=== PATIENT | female | born 1970 | race American Indian/Alaskan Native ===

== ENCOUNTER 2016-08-21 00:28 | Emergency (ER) | payer MEDICAID ==
[2016-08-21 00:51] VITALS: BP 134/84
[2016-08-21] MEDS ORDERED: DELTASONE PO ONE (03:06)
[2016-08-21] MEDS ORDERED: BENADRYL PO ONE (03:06)
--- NOTE | 2016-08-21 03:07 | Emergency Department Report ---
HPI - General Chief Complaint: Skin Rash Time Seen by Provider: 08/21/16 02:43 - HPI HPI: Patient is a 46-year-old female presents to ED complaining of itching on her right lower arm 4 days. Patient states 4 days ago she noticed a bump on posterior lower arm starting on her wrist in more showed up on her wrists. Patient states rash is itchy in nature. Patient states she has not, to contact with any allergens that she is aware of She denies fevers/chills/nausea/vomiting/assessment chest pain/shortness of breath or any other problems ED Past Medical Hx - Past Medical History Previous Medical History?: Yes Hx Hypertension: Yes Hx Arthritis: Yes (RH) Hx Psychiatric Treatment: Yes (biplor,maniac depression,schizophrenia) Additional medical history: chronic pain,DJD - Surgical History Past Surgical History?: Yes Additional Surgical History: abnormal pap smear resulting in cyrosurgery - Social History Smoking Status: Current Every Day Smoker Substance Use Type: None - Medications Home Medications: Home Medications Medication Instructions Recorded Confirmed Last Taken Type Ambien 10 mg PO HS 02/21/16 08/21/16 2 Days Ago History Atenolol 50 mg PO DAILY #30 02/21/16 08/21/16 1 Day Ago Rx Ativan 1 mg PO PRN 02/21/16 08/21/16 1 Day Ago History Benadryl CAP 50 mg PO BID 02/21/16 08/21/16 1 Day Ago History Elavil 50 mg PO DAILY 02/21/16 08/21/16 1 Day Ago History PROzac 60 mg PO DAILY 02/21/16 08/21/16 1 Day Ago History Percocet 10/325 mg 10 mg PO TID 02/21/16 08/21/16 08/20/16 History Simvastatin 20 mg PO HS #30 02/21/16 08/21/16 1 Day Ago Rx amLODIPine 5 mg PO DAILY #30 02/21/16 08/21/16 1 Day Ago Rx traMADol 50 mg PO PRN 02/21/16 08/21/16 Unknown History ALBUTEROL Inhaler [Proair] 1 puff IH DAILY 08/21/16 08/21/16 Unknown History Fluticasone/Salmeterol [Advair 1 spray IH DAILY 08/21/16 08/21/16 1 Day Ago History 250-50 Diskus] Furosemide [Lasix] 20 mg PO QDAY 08/21/16 08/21/16 1 Day Ago History Prednisone [predniSONE 5 mg (6-Day 5 mg PO .TAPER #1 tab.ds.pk 08/21/16 Unknown Rx Pack, 21 Tabs)] diphenhydrAMINE [Benadryl CAP] 25 mg PO QHS #24 capsule 08/21/16 Unknown Rx ED Review of Systems ROS: Stated complaint: RASH W/ITCHING Other details as noted in HPI Constitutional: denies: chills, fever Eyes: denies: eye pain, eye discharge, vision change ENT: denies: ear pain, throat pain Respiratory: denies: cough, shortness of breath, wheezing Cardiovascular: denies: chest pain, palpitations Endocrine: no symptoms reported Gastrointestinal: denies: abdominal pain, nausea, diarrhea Genitourinary: denies: urgency, dysuria, discharge Musculoskeletal: denies: back pain, joint swelling, arthralgia Skin: pruritus. denies: rash, lesions Neurological: denies: headache, weakness, paresthesias Psychiatric: denies: anxiety, depression Hematological/Lymphatic: denies: easy bleeding, easy bruising Physical Exam - Physical Exam Vital Signs: Vital Signs 08/21/16 08/21/16 00:47 01:02 Temperature 98.4 F Pulse Rate 83 Respiratory 18 18 Rate Blood Pressure 134/84 O2 Sat by Pulse 97 97 Oximetry Physical Exam: GENERAL: Alert and oriented x3, no apparent distress, Normal Gait, atraumatic. HEAD: Head is normocephalic and a-traumatic. EYES: Extra ocular muscles are intact. Pupils are equal, round, and reactive to light and accommodation. MOUTH:Mouth is well hydrated and without lesions. Tonsils nonerythematous or swollen, Uvula midline, Tongue not elevated. Mucous membranes are moist. Posterior pharynx clear, no exudate or lesions. Patent airways. NECK: Supple. Non edematous, No carotid bruits. No lymphadenopathy or thyromegaly. No C-spine tenderness LUNGS: Symetrical with respiration, No wheezing, no rales or crackles, CTAB. HEART: S1, S2 present, regular rate and rhythm without murmur, no rubs, no gallops. SKIN: Warm and dry, scattered, generalized, raised papules on the right arm. No other lesions, No ulceration or induration present. ED Course Vital Signs 08/21/16 08/21/16 00:47 01:02 Temperature 98.4 F Pulse Rate 83 Respiratory 18 18 Rate Blood Pressure 134/84 O2 Sat by Pulse 97 97 Oximetry ED Medical Decision Making - Medical Decision Making 46-year-old female presents with allergic dermatitis ED course: Patient received prednisone and Benadryl in ED Discussed the patient with follow-up with primary care physician. Discussed the patient symptoms worsen to return to ED otherwise follow-up. Discussed if symptoms persists consider follow-up with a chemical mixer. Discussed with the medication as prescribed. Vital signs are normal patient is in acute distress Patient is alert and oriented 3 and understands all instructions given Critical care attestation.: If time is entered above; I have spent that time in minutes in the direct care of this critically ill patient, excluding procedure time. ED Disposition Clinical Impression: Allergic dermatitis Contact dermatitis Qualifiers: Contact dermatitis type: allergic Contact dermatitis trigger: unspecified trigger Qualified Code(s): L23.9 - Allergic contact dermatitis, unspecified cause Disposition: DISCHARGED TO HOME OR SELFCARE Is pt being admited?: No Does the pt Need Aspirin: No Condition: Stable Instructions: Contact Dermatitis (ED), Acute Rash (ED) Prescriptions: diphenhydrAMINE [Benadryl CAP] 25 mg PO QHS #24 capsule Prednisone [predniSONE 5 mg (6-Day Pack, 21 Tabs)] 5 mg PO .TAPER #1 tab.ds.pk Referrals: SHORTY PENA MD [Primary Care Provider] - 3-5 Days Forms: Accompanied Note, Work/School Release Form(ED) Time of Disposition: 03:10
== END 2016-08-21 03:45 | disposition home or self-care (01) ==
LOC: ED 00:28
DX: L23.9 Allergic contact dermatitis, unspecified cause (principal); I10 Essential (primary) hypertension; M19.90 Unspecified osteoarthritis, unspecified site; F33.9 Major depressive disorder, recurrent, unspecified; G89.29 Other chronic pain; F17.200 Nicotine dependence, unspecified, uncomplicated
CPT/HCPCS: 99282; J7512

== ENCOUNTER 2018-10-23 14:46 | Emergency (ER) | payer MEDICAID ==
[2018-10-23 15:38] VITALS: BP 175/122
--- NOTE | 2018-10-23 15:51 | Event Note ---
ED Screening Note Date of service: 10/23/18 Time: 15:49 ED Screening Note: 48 y/o female comes in for vaginal discharge and abdominal pain. Reports that she was told that she may have been exposed to trich. This initial assessment/diagnostic orders/clinical plan/treatment(s) is/are subject to change based on patients health status, clinical progression and re- assessment by fellow clinical providers in the ED. Further treatment and workup at subsequent clinical providers discretion. Patient/guardian urged not to elope from the ED as their condition may be serious if not clinically assessed and managed. Initial orders include:
[2018-10-23 16:31] LABS: Bacteria,Urine 2+ /HPF (Negative); Bilirubin,Urine NEG (Negative); Blood,Urine NEG (Negative); Color,Urine Yellow (Yellow); Mucus,Urine FEW /HPF; Sperm,Urine FEW /HPF (NP); Urobilinogen,Urine < 2.0 mg/dL (<2.0)
[2018-10-23 16:39] LABS: Protein,Urine >500 mg/dL (Negative)
--- NOTE | 2018-10-23 17:37 | Emergency Department Report ---
ED Female HPI - General Chief complaint: Dyspnea/Respdistress Stated complaint: STD/BID PAIN Time Seen by Provider: 10/23/18 15:49 Source: patient Mode of arrival: Ambulatory Limitations: No Limitations - History of Present Illness Initial comments: This is a 48-year-old female nontoxic, well nourished in appearance, no acute signs of distress presents to the ED with c/o of vaginal discharge. Patient denies any vaginal pain or swelling. Patient denies any abdominal or pelvic pain. Patient denies any vaginal ulcers or lesions. Patient denies any nausea, vomiting, chest pain, shortness of breathe, fever, chills, headache, back pain, numbness, tingling, stiff neck. Patient denies any urinary symptoms. Patient denies any allergies. MD Complaint: vaginal discharge -: days(s) Severity scale (0 -10): 0 Improves with: none Worsens with: none Are you Now?: No Associated Symptoms: vaginal discharge. denies: vaginal bleeding, abdominal pain, nausea/vomiting, fever/chills, headaches, loss of appetite, dysuria, hematuria, rash, seizure, shortness of breath, syncope, weakness - Related Data Sexually active: Yes Home Medications Medication Instructions Recorded Confirmed Last Taken PROzac 40 mg PO DAILY 02/21/16 03/11/18 1 Day Ago ~08/20/16 traMADol 50 mg PO PRN PRN 02/21/16 03/11/18 Unknown ALBUTEROL Inhaler (OR & NICU) 1 puff IH DAILY 08/21/16 03/11/18 Unknown [ProAir HFA Inhaler] Advair Diskus 500-50 mcg 500 mcg INHALATION BID PRN 03/11/18 03/11/18 Unknown Amlodipine Besylate 10 mg PO DAILY 03/11/18 03/11/18 Unknown Aspirin EC 81 mg PO DAILY 03/11/18 03/11/18 Unknown Cyclobenzaprine 10 mg PO BID PRN 03/11/18 03/11/18 Unknown Pregabalin [Lyrica] 75 mg PO DAILY 03/11/18 03/11/18 Unknown diphenhydrAMINE [Benadryl CAP] 25 mg PO QHS PRN 03/11/18 03/11/18 Unknown Previous Rx's Medication Instructions Recorded Last Taken Type Atenolol 50 mg PO DAILY #30 02/21/16 1 Day Ago Rx ~08/20/16 Simvastatin 20 mg PO HS #30 02/21/16 1 Day Ago Rx ~08/20/16 Isosorb Dinit/Hydralazine [Bidil 1 each PO Q8HR #90 tablet 03/19/18 Unknown Rx 20/37.5MG] Nicotine [Habitrol] 14 mg TD DAILY #30 patch 03/19/18 Unknown Rx Zolpidem [Ambien] 10 mg PO HS PRN #5 tablet 03/19/18 Unknown Rx guaiFENesin [Robitussin] 200 mg PO Q4H PRN 10 Days 03/19/18 Unknown Rx oral.liqd metroNIDAZOLE [Flagyl] 500 mg PO Q12HR #14 tab 10/23/18 Unknown Rx Allergies Allergy/AdvReac Type Severity Reaction Status Date / Time No Known Allergies Allergy Verified 02/20/16 22:28 ED Review of Systems ROS: Stated complaint: STD/BID PAIN Other details as noted in HPI Constitutional: denies: chills, fever Eyes: denies: eye pain, eye discharge, vision change ENT: denies: ear pain, throat pain Respiratory: denies: cough, shortness of breath, wheezing Cardiovascular: denies: chest pain, palpitations Endocrine: no symptoms reported Gastrointestinal: denies: abdominal pain, nausea, diarrhea Genitourinary: discharge. denies: urgency, dysuria Musculoskeletal: denies: back pain, joint swelling, arthralgia Skin: denies: rash, lesions Neurological: denies: headache, weakness, paresthesias Psychiatric: denies: anxiety, depression Hematological/Lymphatic: denies: easy bleeding, easy bruising ED Past Medical Hx - Past Medical History Previous Medical History?: Yes Hx Hypertension: Yes Hx Congestive Heart Failure: Yes Hx Arthritis: Yes (rheumatoid) Hx Psychiatric Treatment: Yes (biplor,maniac depression,schizophrenia) Additional medical history: chronic pain,DJD - Surgical History Past Surgical History?: Yes Additional Surgical History: abnormal pap smear resulting in cyrosurgery - Social History Smoking Status: Current Every Day Smoker Substance Use Type: None - Medications Home Medications: Home Medications Medication Instructions Recorded Confirmed Last Taken Type Atenolol 50 mg PO DAILY #30 02/21/16 03/11/18 1 Day Ago Rx ~08/20/16 PROzac 40 mg PO DAILY 02/21/16 03/11/18 1 Day Ago History ~08/20/16 Simvastatin 20 mg PO HS #30 02/21/16 03/11/18 1 Day Ago Rx ~08/20/16 traMADol 50 mg PO PRN PRN 02/21/16 03/11/18 Unknown History ALBUTEROL Inhaler (OR & NICU) 1 puff IH DAILY 08/21/16 03/11/18 Unknown History [ProAir HFA Inhaler] Advair Diskus 500-50 mcg 500 mcg INHALATION BID PRN 03/11/18 03/11/18 Unknown History Amlodipine Besylate 10 mg PO DAILY 03/11/18 03/11/18 Unknown History Aspirin EC 81 mg PO DAILY 03/11/18 03/11/18 Unknown History Cyclobenzaprine 10 mg PO BID PRN 03/11/18 03/11/18 Unknown History Pregabalin [Lyrica] 75 mg PO DAILY 03/11/18 03/11/18 Unknown History diphenhydrAMINE [Benadryl CAP] 25 mg PO QHS PRN 03/11/18 03/11/18 Unknown History Isosorb Dinit/Hydralazine [Bidil 1 each PO Q8HR #90 tablet 03/19/18 Unknown Rx 20/37.5MG] Nicotine [Habitrol] 14 mg TD DAILY #30 patch 03/19/18 Unknown Rx Zolpidem [Ambien] 10 mg PO HS PRN #5 tablet 03/19/18 Unknown Rx guaiFENesin [Robitussin] 200 mg PO Q4H PRN 10 Days 03/19/18 Unknown Rx oral.liqd metroNIDAZOLE [Flagyl] 500 mg PO Q12HR #14 tab 10/23/18 Unknown Rx ED Physical Exam - General Limitations: No Limitations General appearance: alert, in no apparent distress - Head Head exam: Present: atraumatic, normocephalic - Neck Neck exam: Present: normal inspection, full ROM. Absent: tenderness, meningismus, lymphadenopathy - Respiratory Respiratory exam: Present: normal lung sounds bilaterally. Absent: respiratory distress, wheezes, rales, rhonchi, stridor, chest wall tenderness, accessory muscle use, decreased breath sounds, prolonged expiratory - Cardiovascular Cardiovascular Exam: Present: regular rate, normal rhythm, normal heart sounds. Absent: irregular rhythm, systolic murmur, diastolic murmur, rubs, gallop - GI/Abdominal GI/Abdominal exam: Present: soft, normal bowel sounds. Absent: distended, tenderness, guarding, rebound, rigid, diminished bowel sounds - External exam: Present: normal external exam, other (membership coordinator [employer] present on exam). Absent: erythema, swelling, lesions, lacerations, ecchymosis, bleeding Speculum exam: Present: cervical discharge, other (membership coordinator [employer] present on exam). Absent: erythema, vaginal discharge, vaginal bleeding, foreign body, tissue, laceration Bi-manual exam: Present: normal bi-manual exam, other (membership coordinator [employer] present on exam). Absent: cervical motion tendernes, adnexal tenderness, adnexal mass, uterine enlargement, uterine tenderness - Extremities Exam Extremities exam: Present: normal inspection, full ROM - Back Exam Back exam: Present: normal inspection, full ROM. Absent: tenderness, CVA tenderness (R), CVA tenderness (L), muscle spasm, paraspinal tenderness, vertebral tenderness, rash noted - Neurological Exam Neurological exam: Present: alert, oriented X3, normal gait - Psychiatric Psychiatric exam: Present: normal affect, normal mood - Skin Skin exam: Present: warm, dry, intact, normal color. Absent: rash ED Course Vital Signs 10/23/18 15:27 Temperature 98.9 F Pulse Rate 94 H Respiratory 20 Rate Blood Pressure 175/122 O2 Sat by Pulse 97 Oximetry - Reevaluation(s) Reevaluation #1: 10/23/18 17:38 Patient is speaking in full sentences with no signs of distress noted. ED Medical Decision Making - Medical Decision Making This is a 48-year-old female that presents with BV. Patient is stable was examined by me. There is no abdominal tenderness. No pelvic pain. UA obtained. Wet prep obtained. Gonorrhea chlamydia swab pending. Patient was instructed to return in 2 days for GC results. Patient stated wants to wait for GC swab results before getting treatment. Patient was instructed to Follow-up with a primary care doctor in 3-5 days or if symptoms worsen and continue return to emergency room as soon as possible. At time of discharge, the patient does not seem toxic or ill in appearance. No acute signs of distress noted. Patient agrees to discharge treatment plan of care. No further questions noted by the patient. Critical care attestation.: If time is entered above; I have spent that time in minutes in the direct care of this critically ill patient, excluding procedure time. ED Disposition Clinical Impression: Bacterial vaginosis Disposition: - TO HOME OR SELFCARE Is pt being admited?: No Does the pt Need Aspirin: No Condition: Stable Instructions: Bacterial Vaginosis (ED), Metronidazole (By mouth) Additional Instructions: Follow-up with a primary care doctor in 3-5 days or if symptoms worsen and continue return to emergency room as soon as possible. Prescriptions: metroNIDAZOLE [Flagyl] 500 mg PO Q12HR #14 tab Referrals: PRIMARY CARE, [Primary Care Provider] - 3-5 Days CYNTHIA SOLIS MD [Staff Physician] - 3-5 Days [facility] [Outside] - 3-5 Days [facility] [Outside] - 3-5 Days Forms: Work/School Release Form(ED)
== END 2018-10-23 19:47 | disposition home or self-care (01) ==
LOC: ED 14:46
DX: N76.0 Acute vaginitis (principal); B96.89 Other specified bacterial agents as the cause of diseases classified elsewhere; I11.0 Hypertensive heart disease with heart failure; I50.9 Heart failure, unspecified; F31.9 Bipolar disorder, unspecified; F20.9 Schizophrenia, unspecified; F17.200 Nicotine dependence, unspecified, uncomplicated; G89.29 Other chronic pain; M06.9 Rheumatoid arthritis, unspecified; Z79.899 Other long term (current) drug therapy
CPT/HCPCS: 81001; 87210; 87591

== ENCOUNTER 2018-12-24 19:26 | Emergency (ER) | payer MEDICAID ==
[2018-12-24 20:13] VITALS: BP 175/92
--- NOTE | 2018-12-24 20:22 | Emergency Department Report ---
ED Rash HPI - HPI Chief Complaint: Skin Rash Stated Complaint: RASH Time Seen by Provider: 12/24/18 20:17 Duration: 2 Days Location: Neck, Back, Upper Extremities, Lower Extremities Suspected Cause: Unknown Rash Symptoms: Yes Itching, No Facial Swelling, No Tongue/Oral Swelling, No Breathing Difficulties, No Choking Sensation, No Wheezing/Dyspnea, No Peeling, No Blistering, No Fever, No Lightheaded, No Malaise, No Myalgias Severity: mild Other History: This is a 48-year-old female nontoxic well in appearance with no signs of distress presents to the ED with complaint of neck, arms, and back itching and rash. Patient denies any swelling, pus, or drainage. Stated has just started to sleep in her friends house. Patient denies any other symptoms. Denies any fever, chills, headache, nausea, vomiting, chest pain or SOB. Denies any other complaints. ED Review of Systems ROS: Stated complaint: RASH Other details as noted in HPI Constitutional: denies: chills, fever Eyes: denies: eye pain, eye discharge, vision change ENT: denies: ear pain, throat pain Respiratory: denies: cough, shortness of breath, wheezing Cardiovascular: denies: chest pain, palpitations Endocrine: no symptoms reported Gastrointestinal: denies: abdominal pain, nausea, diarrhea Genitourinary: denies: urgency, dysuria, discharge Musculoskeletal: denies: back pain, joint swelling, arthralgia Skin: rash. denies: lesions Neurological: denies: headache, weakness, paresthesias Psychiatric: denies: anxiety, depression Hematological/Lymphatic: denies: easy bleeding, easy bruising ED Past Medical Hx - Past Medical History Previous Medical History?: Yes Hx Hypertension: Yes Hx Congestive Heart Failure: Yes Hx Arthritis: Yes (rheumatoid) Hx Psychiatric Treatment: Yes (biplor,maniac depression,schizophrenia) Additional medical history: chronic pain,DJD - Surgical History Past Surgical History?: Yes Additional Surgical History: abnormal pap smear resulting in cyrosurgery. debride and skin graft from thigh to ankle - Social History Smoking Status: Current Every Day Smoker Substance Use Type: None - Medications Home Medications: Home Medications Medication Instructions Recorded Confirmed Last Taken Type Atenolol 50 mg PO DAILY #30 02/21/16 03/11/18 1 Day Ago Rx ~08/20/16 PROzac 40 mg PO DAILY 02/21/16 03/11/18 1 Day Ago History ~08/20/16 Simvastatin 20 mg PO HS #30 02/21/16 03/11/18 1 Day Ago Rx ~08/20/16 traMADol 50 mg PO PRN PRN 02/21/16 03/11/18 Unknown History ALBUTEROL Inhaler (OR & NICU) 1 puff IH DAILY 08/21/16 03/11/18 Unknown History [ProAir HFA Inhaler] Advair Diskus 500-50 mcg 500 mcg INHALATION BID PRN 03/11/18 03/11/18 Unknown History Amlodipine Besylate 10 mg PO DAILY 03/11/18 03/11/18 Unknown History Aspirin EC 81 mg PO DAILY 03/11/18 03/11/18 Unknown History Cyclobenzaprine 10 mg PO BID PRN 03/11/18 03/11/18 Unknown History Pregabalin 75 mg PO DAILY 03/11/18 03/11/18 Unknown History diphenhydrAMINE [Benadryl CAP] 25 mg PO QHS PRN 03/11/18 03/11/18 Unknown History Isosorb Dinit/Hydralazine [Bidil 1 each PO Q8HR #90 tablet 03/19/18 Unknown Rx 20/37.5MG] Nicotine [Habitrol] 14 mg TD DAILY #30 patch 03/19/18 Unknown Rx Zolpidem [Ambien] 10 mg PO HS PRN #5 tablet 03/19/18 Unknown Rx guaiFENesin [Robitussin] 200 mg PO Q4H PRN 10 Days 03/19/18 Unknown Rx oral.liqd metroNIDAZOLE [Flagyl] 500 mg PO Q12HR #14 tab 10/23/18 Unknown Rx Triamcinolone 0.1% [Kenalog 0.1% 1 applic TP TID #1 tube 12/24/18 Unknown Rx CREAM] diphenhydrAMINE [Benadryl CAP] 25 mg PO Q6HR PRN #20 capsule 12/24/18 Unknown Rx Rash Exam - Exam General: Vital signs noted. No distress. Alert and acting appropriately. HEENT: No Periorbital Edema, No Conjuctival Injection, No Chemosis, No Perioral Edema, No Tongue Edema, No Uvular Edema, No Compromised Airway, No Drooling Lungs: Yes Good Air Exchange (Normal Breath Sounds), No Wheezes, No Ronchi, No Stridor, No Cough, No Labored Respirations, No Retractions, No Use of Accessory Muscles, No Other Abnormal Lung Sounds Heart: Yes Regular, No Murmur Skin: Yes Other (small puncate maculopapular rash to arms, neck and back), No Urticarial Rash, No Maculopapular Rash, No Morbilliform rash, No Bulla(e), No Excoriations, No Weeping, No Tenderness, No Erythema, No Edema, No Encrustations Other: Positive: Abdomen Normal, Neurologic Normal, Musculoskeletal Normal ED Course Vital Signs 12/24/18 20:12 Temperature 98.7 F Pulse Rate 97 H Respiratory 16 Rate Blood Pressure 175/92 [Right] O2 Sat by Pulse 99 Oximetry - Reevaluation(s) Reevaluation #1: 12/24/18 20:19 Patient is speaking in full sentences with no signs of distress noted. ED Medical Decision Making - Medical Decision Making Patient was educated on bedbugs prevention and treatments. Patient will be treated with Kenalog and Benadryl. Patient was instructed to Follow-up with a primary care doctor in 3-5 days or if symptoms worsen and continue return to emergency room as soon as possible. At time of discharge, the patient does not seem toxic or ill in appearance. No acute signs of distress noted. Patient agrees to discharge treatment plan of care. No further questions noted by the patient. Critical care attestation.: If time is entered above; I have spent that time in minutes in the direct care of this critically ill patient, excluding procedure time. ED Disposition Clinical Impression: Bedbug bite Qualifiers: Encounter type: initial encounter Qualified Code(s): W57.XXXA - Bitten or stung by nonvenomous insect and other nonvenomous arthropods, initial encounter Disposition: DC-01 TO HOME OR SELFCARE Is pt being admited?: No Does the pt Need Aspirin: No Condition: Stable Instructions: Insect Bite or Sting (ED) Additional Instructions: Follow-up with a primary care doctor in 3-5 days or if symptoms worsen and continue return to emergency room as soon as possible. Prescriptions: diphenhydrAMINE [Benadryl CAP] 25 mg PO Q6HR PRN #20 capsule PRN Reason: Itching Triamcinolone 0.1% [Kenalog 0.1% CREAM] 1 applic TP TID #1 tube Referrals: PRIMARY CARE, [Referring] - 3-5 Days CYNTHIA SOLIS MD [Staff Physician] - 3-5 Days [facility] [Outside] - 3-5 Days [facility] [Outside] - 3-5 Days Forms: Work/School Release Form(ED)
== END 2018-12-24 20:39 | disposition home or self-care (01) ==
LOC: ED 19:26
DX: S40.862A Insect bite (nonvenomous) of left upper arm, initial encounter (principal); S40.861A Insect bite (nonvenomous) of right upper arm, initial encounter; S10.96XA Insect bite of unspecified part of neck, initial encounter; S20.469A Insect bite (nonvenomous) of unspecified back wall of thorax, initial encounter; I11.0 Hypertensive heart disease with heart failure; I50.9 Heart failure, unspecified; M19.90 Unspecified osteoarthritis, unspecified site; F17.200 Nicotine dependence, unspecified, uncomplicated; Z98.890 Other specified postprocedural states; Z79.899 Other long term (current) drug therapy; W57.XXXA Bitten or stung by nonvenomous insect and other nonvenomous arthropods, initial encounter; Y93.89 Activity, other specified; Y92.89 Other specified places as the place of occurrence of the external cause; Y99.8 Other external cause status
CPT/HCPCS: 99283

== ENCOUNTER 2019-01-19 14:16 | Emergency (ER) | payer MEDICAID ==
[2019-01-19] MEDS ORDERED: diphenhydrAMINE 50 MG/ML VIAL IV ONE (14:33)
[2019-01-19] MEDS ORDERED: cloNIDine 0.1 MG TAB PO ONE (14:51)
[2019-01-19 15:25] LABS: Hemoglobin 11.3 gm/dl (10.1-14.3); Mean Corpuscular HGB Conc 32 % (30-34); Mean Corpuscular Volume 80 fl (79-97); Platelet Count 289 K/mm3 (140-440); Red Blood Count 4.39 M/mm3 (3.65-5.03); Red Cell Distribution Width 17.1 % (13.2-15.2)
[2019-01-19 16:13] LABS: Calcium 8.9 mg/dL (8.4-10.2)
[2019-01-19 16:27] LABS: Basophils % (Manual) 0 % (0.0-1.8); Total Cells Counted 100
[2019-01-19 16:28] LABS: Anisocytosis 1+; Hypochromasia 1+; Platelet Estimate Consistent w Auto; Target Cells Rare
--- NOTE | 2019-01-19 16:35 | Emergency Department Report ---
ED General Adult HPI - General Chief complaint: High BP Stated complaint: JAW PAIN HBP Time Seen by Provider: 01/19/19 14:22 Source: EMS Mode of arrival: Stretcher Limitations: No Limitations - History of Present Illness Initial comments: 48-year-old female with a past medical history of schizophrenia, rheumatoid arthritis, CHF, hypertension, bipolar disease, and chronic renal insufficiency presents to the hospital complaining of lockjaw, right-sided facial muscle twisting, and left eye deviation for 2 hours prior to arrival. Patient is currently taking Prozac and took her last Ativan this morning. She's been noncompliant her blood pressure medication and Ambien because she was released from long term 2 weeks ago. She has a scheduled appointment next week for med refills. She denies headache, chest pain, or shortness of breath. Patient thinks she might have accidentally taken an extra Prozac today. - Related Data Home Medications Medication Instructions Recorded Confirmed Last Taken PROzac 40 mg PO DAILY 02/21/16 03/11/18 1 Day Ago ~08/20/16 traMADol 50 mg PO PRN PRN 02/21/16 03/11/18 Unknown ALBUTEROL Inhaler (OR & NICU) 1 puff IH DAILY 08/21/16 03/11/18 Unknown [ProAir HFA Inhaler] Advair Diskus 500-50 mcg 500 mcg INHALATION BID PRN 03/11/18 03/11/18 Unknown Amlodipine Besylate 10 mg PO DAILY 03/11/18 03/11/18 Unknown Aspirin EC 81 mg PO DAILY 03/11/18 03/11/18 Unknown Cyclobenzaprine 10 mg PO BID PRN 03/11/18 03/11/18 Unknown Pregabalin 75 mg PO DAILY 03/11/18 03/11/18 Unknown diphenhydrAMINE [Benadryl CAP] 25 mg PO QHS PRN 03/11/18 03/11/18 Unknown Previous Rx's Medication Instructions Recorded Last Taken Type Atenolol 50 mg PO DAILY #30 02/21/16 1 Day Ago Rx ~08/20/16 Simvastatin 20 mg PO HS #30 02/21/16 1 Day Ago Rx ~08/20/16 Isosorb Dinit/Hydralazine [Bidil 1 each PO Q8HR #90 tablet 03/19/18 Unknown Rx 20/37.5MG] Nicotine [Habitrol] 14 mg TD DAILY #30 patch 03/19/18 Unknown Rx Zolpidem [Ambien] 10 mg PO HS PRN #5 tablet 03/19/18 Unknown Rx guaiFENesin [Robitussin] 200 mg PO Q4H PRN 10 Days 03/19/18 Unknown Rx oral.liqd metroNIDAZOLE [Flagyl] 500 mg PO Q12HR #14 tab 10/23/18 Unknown Rx Triamcinolone 0.1% [Kenalog 0.1% 1 applic TP TID #1 tube 12/24/18 Unknown Rx CREAM] diphenhydrAMINE [Benadryl CAP] 25 mg PO Q6HR PRN #20 capsule 12/24/18 Unknown Rx Amlodipine Besylate [Norvasc] 10 mg PO DAILY #30 tablet 01/19/19 Unknown Rx Atenolol [Tenormin] 50 mg PO DAILY #30 tab 01/19/19 Unknown Rx Benztropine [Cogentin] 1 mg PO BID #20 tab 01/19/19 Unknown Rx LORazepam [Ativan] 0.5 mg PO BID PRN #10 tab 01/19/19 Unknown Rx Allergies Allergy/AdvReac Type Severity Reaction Status Date / Time No Known Allergies Allergy Verified 02/20/16 22:28 ED Review of Systems ROS: Stated complaint: JAW PAIN HBP Other details as noted in HPI Comment: All other systems reviewed and negative ED Past Medical Hx - Past Medical History Hx Hypertension: Yes Hx Congestive Heart Failure: Yes Hx Renal Disease: Yes Hx Arthritis: Yes (rheumatoid) Hx Psychiatric Treatment: Yes (biplor,maniac depression,schizophrenia) Additional medical history: chronic pain,DJD - Surgical History Additional Surgical History: abnormal pap smear resulting in cyrosurgery. debride and skin graft from thigh to ankle - Social History Smoking Status: Current Every Day Smoker Substance Use Type: None - Medications Home Medications: Home Medications Medication Instructions Recorded Confirmed Last Taken Type Atenolol 50 mg PO DAILY #30 02/21/16 03/11/18 1 Day Ago Rx ~08/20/16 PROzac 40 mg PO DAILY 02/21/16 03/11/18 1 Day Ago History ~08/20/16 Simvastatin 20 mg PO HS #30 02/21/16 03/11/18 1 Day Ago Rx ~06/02/17 traMADol 50 mg PO PRN PRN 02/21/16 03/11/18 Unknown History ALBUTEROL Inhaler (OR & NICU) 1 puff IH DAILY 08/21/16 03/11/18 Unknown History [ProAir HFA Inhaler] Advair Diskus 500-50 mcg 500 mcg INHALATION BID PRN 03/11/18 03/11/18 Unknown History Amlodipine Besylate 10 mg PO DAILY 03/11/18 03/11/18 Unknown History Aspirin EC 81 mg PO DAILY 03/11/18 03/11/18 Unknown History Cyclobenzaprine 10 mg PO BID PRN 03/11/18 03/11/18 Unknown History Pregabalin 75 mg PO DAILY 03/11/18 03/11/18 Unknown History diphenhydrAMINE [Benadryl CAP] 25 mg PO QHS PRN 03/11/18 03/11/18 Unknown History Isosorb Dinit/Hydralazine [Bidil 1 each PO Q8HR #90 tablet 03/19/18 Unknown Rx 20/37.5MG] Nicotine [Habitrol] 14 mg TD DAILY #30 patch 03/19/18 Unknown Rx Zolpidem [Ambien] 10 mg PO HS PRN #5 tablet 03/19/18 Unknown Rx guaiFENesin [Robitussin] 200 mg PO Q4H PRN 10 Days 03/19/18 Unknown Rx oral.liqd metroNIDAZOLE [Flagyl] 500 mg PO Q12HR #14 tab 10/23/18 Unknown Rx Triamcinolone 0.1% [Kenalog 0.1% 1 applic TP TID #1 tube 12/24/18 Unknown Rx CREAM] diphenhydrAMINE [Benadryl CAP] 25 mg PO Q6HR PRN #20 capsule 12/24/18 Unknown Rx Amlodipine Besylate [Norvasc] 10 mg PO DAILY #30 tablet 01/19/19 Unknown Rx Atenolol [Tenormin] 50 mg PO DAILY #30 tab 01/19/19 Unknown Rx Benztropine [Cogentin] 1 mg PO BID #20 tab 01/19/19 Unknown Rx LORazepam [Ativan] 0.5 mg PO BID PRN #10 tab 01/19/19 Unknown Rx ED Physical Exam - General Limitations: No Limitations - Other Other exam information: General: No acute distress, Head: Atraumatic Eyes: normal appearance, patient will preferential left gaze preference over extraocular movements are intact pupils equal and reactive to light ENT: Moist mucous membranes, limited smile due to facial muscle spasms and trismus Neck: Normal appearance, no midline tenderness Chest: Clear to auscultation bilaterally CV: Regular rate and rhythm Abdomen: Soft, normal bowel sounds, nontender, nondistended, no rebound or guarding Back: Normal inspection Extremity: Normal inspection infection, full range of motion Neuro: Alert O x 3, no facial asymmetry, speech clear, no gross motor sensory deficit Psych: Appropriate behavior Skin: No rash ED Course Vital Signs 01/19/19 01/19/19 01/19/19 14:35 14:37 14:45 Temperature 97.8 F Pulse Rate 103 H 102 H 98 H Respiratory 17 16 20 Rate Blood Pressure 182/126 Blood Pressure 190/132 [Left] O2 Sat by Pulse 99 100 97 Oximetry 01/19/19 01/19/19 01/19/19 14:58 14:59 15:01 Temperature Pulse Rate 92 H 98 H Respiratory 20 13 Rate Blood Pressure 182/126 191/119 Blood Pressure [Left] O2 Sat by Pulse 100 98 Oximetry 01/19/19 01/19/19 01/19/19 15:15 15:31 15:45 Temperature Pulse Rate 95 H 92 H 107 H Respiratory 19 20 16 Rate Blood Pressure 191/119 176/124 184/141 Blood Pressure [Left] O2 Sat by Pulse 100 99 97 Oximetry 01/19/19 01/19/19 01/19/19 16:00 16:15 16:31 Temperature Pulse Rate 91 H 92 H Respiratory 27 H 13 Rate Blood Pressure 176/124 176/124 112/93 Blood Pressure [Left] O2 Sat by Pulse 98 100 98 Oximetry 01/19/19 01/19/19 01/19/19 16:45 17:07 17:49 Temperature Pulse Rate 98 H Respiratory 25 H Rate Blood Pressure 112/93 100/72 182/124 Blood Pressure [Left] O2 Sat by Pulse 100 100 Oximetry 01/19/19 01/19/19 18:00 18:15 Temperature Pulse Rate Respiratory Rate Blood Pressure 152/108 156/110 Blood Pressure [Left] O2 Sat by Pulse Oximetry ED Medical Decision Making - Lab Data Result diagrams: 01/19/19 14:58 01/19/19 14:58 Lab Results 01/19/19 01/19/19 Range/Units 14:58 14:58 WBC 8.9 (4.5-11.0) K/mm3 RBC 4.39 (3.65-5.03) M/mm3 Hgb 11.3 (10.1-14.3) gm/dl Hct 35.0 (30.3-42.9) % MCV 80 (79-97) fl MCH 26 L (28-32) pg MCHC 32 (30-34) % RDW 17.1 H (13.2-15.2) % Plt Count 289 (140-440) K/mm3 Add Manual Diff Complete Total Counted 100 Seg Neuts % (Manual) 74 H (40.0-70.0) % Band Neutrophils % 0 % Lymphocytes % (Manual) 20.0 (13.4-35.0) % Reactive Lymphs % (Man) 0 % Monocytes % (Manual) 5.0 (0.0-7.3) % Eosinophils % (Manual) 1.0 (0.0-4.3) % Basophils % (Manual) 0 (0.0-1.8) % Metamyelocytes % 0 % Myelocytes % 0 % Promyelocytes % 0 % Blast Cells % 0 % Nucleated RBC % Not Reportable Seg Neutrophils # Man 6.5 (1.8-7.7) K/mm3 Band Neutrophils # 0.0 K/mm3 Lymphocytes # (Manual) 1.8 (1.2-5.4) K/mm3 Abs React Lymphs (Man) 0.0 K/mm3 Monocytes # (Manual) 0.4 (0.0-0.8) K/mm3 Eosinophils # (Manual) 0.1 (0.0-0.4) K/mm3 Basophils # (Manual) 0.0 (0.0-0.1) K/mm3 Metamyelocytes # 0.0 K/mm3 Myelocytes # 0.0 K/mm3 Promyelocytes # 0.0 K/mm3 Blast Cells # 0.0 K/mm3 WBC Morphology Not Reportable Hypersegmented Neuts Not Reportable Hyposegmented Neuts Not Reportable Hypogranular Neuts Not Reportable Smudge Cells Not Reportable Toxic Granulation Not Reportable Toxic Vacuolation Not Reportable Dohle Bodies Not Reportable Pelger-Huet Anomaly Not Reportable Heather Rods Not Reportable Platelet Estimate Consistent w auto Clumped Platelets Not Reportable Plt Clumps, EDTA Not Reportable Large Platelets Not Reportable Giant Platelets Not Reportable Platelet Satelliting Not Reportable Plt Morphology Comment Not Reportable RBC Morphology Not Reportable Dimorphic RBCs Not Reportable Polychromasia Not Reportable Hypochromasia 1+ Poikilocytosis Not Reportable Anisocytosis 1+ Microcytosis Not Reportable Macrocytosis Not Reportable Spherocytes Not Reportable Pappenheimer Bodies Not Reportable Sickle Cells Not Reportable Target Cells Rare Tear Drop Cells Not Reportable Ovalocytes Not Reportable Helmet Cells Not Reportable Xiao-[place] Bodies Not Reportable Gotha Rings Not Reportable Cleo Cells Not Reportable Bite Cells Not Reportable Crenated Cell Not Reportable Elliptocytes Not Reportable Acanthocytes (Spur) Not Reportable Rouleaux Not Reportable Hemoglobin C Crystals Not Reportable Schistocytes Not Reportable Malaria parasites Not Reportable Dm Bodies Not Reportable Hem Pathologist Commnt No Sodium 141 (137-145) mmol/L Potassium 4.2 (3.6-5.0) mmol/L Chloride 110.3 H (98-107) mmol/L Carbon Dioxide 18 L (22-30) mmol/L Anion Gap 17 mmol/L BUN 26 H (7-17) mg/dL Creatinine 1.7 H (0.7-1.2) mg/dL Estimated GFR 38 ml/min BUN/Creatinine Ratio 15 % Glucose 94 (65-100) mg/dL Calcium 8.9 (8.4-10.2) mg/dL Magnesium 2.20 (1.7-2.3) mg/dL - Medical Decision Making Patient's muscle spasms improved with Benadryl. Suspected dystonic reaction secondary to psychiatric meds. BP improved with clonidine 0.1 mg. Patient be discharged in the refill in her meds with plan to follow up next week as scheduled on on the fifth. Ativan 0.5 mg twice a day will be prescribed instead of the 1 mg twice a day to prevent withdrawal symptoms. Pt has chronic/stable renal insuf - Differential Diagnosis htn emergency, dystonic reaction Critical Care Time: No Critical care attestation.: If time is entered above; I have spent that time in minutes in the direct care of this critically ill patient, excluding procedure time. ED Disposition Clinical Impression: HTN (hypertension), Noncompliance with medication regimen, Renal insufficiency, Dystonic drug reaction Disposition: DC-01 TO HOME OR SELFCARE Is pt being admited?: No Condition: Stable Instructions: Hypertension (ED), Spasmodic Torticollis (ED), Impaired Kidney Function (ED) Additional Instructions: Take the medication as prescribed. Follow-up with your doctor or doctor/clinic provided. Return if symptoms worsen as indicated by your discharge instructions. Prescriptions: LORazepam [Ativan] 0.5 mg PO BID PRN #10 tab PRN Reason: Anxiety Benztropine [Cogentin] 1 mg PO BID #20 tab Amlodipine Besylate [Norvasc] 10 mg PO DAILY #30 tablet Atenolol [Tenormin] 50 mg PO DAILY #30 tab Referrals: PRIMARY CARE, [Referring] - 3-5 Days Time of Disposition: 18:43
[2019-01-19 18:21] VITALS: BP 156/110
== END 2019-01-19 19:20 | disposition home or self-care (01) ==
LOC: ED 14:16
DX: G24.02 Drug induced acute dystonia (principal); N28.9 Disorder of kidney and ureter, unspecified; F31.9 Bipolar disorder, unspecified; M06.9 Rheumatoid arthritis, unspecified; I11.0 Hypertensive heart disease with heart failure; I50.9 Heart failure, unspecified; F20.9 Schizophrenia, unspecified; F17.200 Nicotine dependence, unspecified, uncomplicated; Z91.14 Patient's other noncompliance with medication regimen; Z79.899 Other long term (current) drug therapy
CPT/HCPCS: 36415; 80048; 83735; 85007; 85025; 96374; 99284; J1200